=== PATIENT | female | born 1985 | race Caucasian/White ===

== ENCOUNTER → 2021-09-22 | Outpatient (CLI) | payer BC ==
--- NOTE | 2021-09-22 18:12 | KCIC ---
Bilateral digital diagnostic 2-D and 3-D (tomosynthesis) mammogram: Reason for examination: Possible mass on Drs. Exam. The patient is not known the location of this mas s. She has a history of previous left breast biopsy showing fibroadenoma and family history of breast carcinoma sister at age 36. Comparison is made to previous study 05/11/2021. Bilateral mammograms in [facility] and oblique projections were obtained with 2-D imaging and 3-D tomosynthes is imaging and reviewed on the workstation. Interpretation was made with the benefit of CAD. FINDINGS MAMMOGRAM: Breast density: Category D. The breasts are extremely dense which lowers sensitivity of mammography. There are no suspicious masses, malignant appearing calcifications or architectural distortion. The b reasts are extremely dense which could obscure a mass. A biopsy marker is seen in the inner left marisa st, approximately the 9:00 at posterior depth. FINDINGS TARGETED LEFT BREAST ULTRASOUND: The area of previous biopsy was imaged, the axilla was evaluated. In the 10:00 position, 5.5 cm from the nipple, there is a oval hypoechoic mass containing biopsy patel er which measures 0.9 cm antiradial by 0.9 cm radial by 0.7 cm AP. This is surrounded by dense fibrog landular tissue. It is consistent with the biopsy-proven fibroadenoma. No axillary adenopathy is seen . Impression: No evidence of malignancy. 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 This is surr ounded by dense fibroglandular tissue which is causing of palpable lump. ASSESSMENT 1 BI-RADS 2. Benign findings. Recommendations: Routine screening mammograms. Continued screening MRI may be helpful I risk patient, if clinically indicated. This patient's information has been entered into a reminder system for the patient to be notified wit h the results of her examination and a target date for the next mammogram. Your patient's mammogram demonstrates that she has dense breast tissue (breast density category C or D), which could hide abnormalities, and if she has other risk factors for breast cancer that have bee n identified, she might benefit from supplemental screening tests that may be suggested by you as her ordering physician. Dense breast tissue, in and of itself, is a relatively common condition. Therefo re, this information is not provided to cause undue concern, but rather to raise your awareness and t o promote discussion with your patient regarding the presence of other risk factors, in addition to d ense breast tissue. Electronically signed by: Susana iLn MD (09/22/2021 6:10 PM) [id number]
== END ==
LOC: KCIC MAMMO 09:25
PROVIDERS: ATTEND Specialist
DX: D24.2 Benign neoplasm of left breast (principal); N63.22 Unspecified lump in the left breast, upper inner quadrant
CPT/HCPCS: 76641; 77066; G0279; 77062